=== PATIENT | female | born 1995 | race American Indian/Alaskan Native ===

== ENCOUNTER 2017-06-26 21:22 | Outpatient (CLI) | payer BC, MEDICAID ==
[2017-06-26 21:49] VITALS: BP 126/77
[2017-06-26] MEDS ORDERED: LACTATED RINGERS 1,000 ML IV ONE (22:15)
[2017-06-26 22:52] LABS: Bilirubin,Urine NEG (Negative); Blood,Urine NEG (Negative); Ketones,Urine NEG (Negative); Leukocyte Esterase,Urine NEG (Negative); Mucus,Urine FEW /HPF; Nitrite,Urine NEG (Negative); Protein,Urine <15 mg/dL mg/dL (Negative); Urobilinogen,Urine < 2.0 mg/dL (<2.0)
== END 2017-06-26 23:45 | disposition home or self-care (01) ==
LOC: TRG 21:22
PROVIDERS: ATTEND Obstetrics & Gynecology
DX: O47.03 False labor before 37 completed weeks of gestation, third trimester (principal); Z3A.30 30 weeks gestation of pregnancy
CPT/HCPCS: 59025; 81001; 96360; J7120

== ENCOUNTER 2017-08-22 05:07 | Outpatient (CLI) | payer BC, MEDICAID ==
[2017-08-22 05:43] VITALS: BP 132/73
== END 2017-08-22 07:27 | disposition home or self-care (01) ==
LOC: TRG 05:07
PROVIDERS: ATTEND Obstetrics & Gynecology
DX: O47.1 False labor at or after 37 completed weeks of gestation (principal); Z3A.39 39 weeks gestation of pregnancy